=== PATIENT | male | born 1960 | race Caucasian/White ===

== ENCOUNTER 2017-02-13 11:19 | Emergency (ER) | payer MEDICAID ==
[~2017-02-13] VITALS: Ht 157.5 cm; Wt 67.0 kg
[2017-02-13 11:22] VITALS: Ht 157.5 cm; Wt 67.0 kg
--- NOTE | 2017-02-13 12:06 | ERD ---
ER Documentation Chief Complaint Date/Time DATE: 02/13/17 TIME: 11:59 Chief Complaint suture removal on rt chest wall HPI Patient is a 56-year-old male with a history of renal disease who presents to the ED for suture removal from his right upper chest wall. Patient states 10 days ago he had a dialysis catheter placed into his right upper chest at [facility]. Patient states that he was advised to follow-up with the dialysis center for suture removal. Patient states today when he went to the dialysis center they stated that they did not have supplies to remove the suture. Patient presents here in the ED for suture removal. Patient denies any fevers, chills, nausea, vomiting, pain, redness, swelling, active bleeding or discharge from the affected site. Patient states that he did receive antibiotics while inpatient. Patient denies taking any antibiotics on outpatient basis. Patient is scheduled to have dialysis tomorrow. ROS All systems reviewed and are negative except as per history of present illness. PMhx/Soc Medical and Surgical Hx: pt denies Surgical Hx History of Surgery: Yes (dialysis) Hx Miscellaneous Medical Probl: No (kidney disease) Hx Alcohol Use: No Hx Substance Use: No Hx Tobacco Use: No FmHx Family History: No diabetes Physical Exam Vitals Vital Signs Date Time Temp Pulse Resp B/P Pulse Ox O2 Delivery O2 Flow Rate FiO2 02/13/17 11:22 98.3 78 18 151/85 98 Physical Exam GENERAL: Well-developed, well-nourished male. Appears in no acute distress. Speaking in full sentences. HEAD: Normocephalic, atraumatic. EYES: Pupils are equally reactive bilaterally. EOMs grossly intact. No conjunctival erythema. ENT: Moist mucous membranes. No uvula deviation. No kissing tonsils. NECK: Supple. No meningismus. Normal range of motion of the neck. LUNG: Clear to auscultation bilaterally. No rhonchi, wheezing, rales or coarse breath sounds. CHEST WALL: Dialysis catheter noted in the right upper chest wall. Surrounding skin is nonerythematous, no swelling, no active bleeding or discharge. One single suture noted below the patient's right clavicle. No surrounding erythema , swelling, warmth or bleeding. HEART: Regular rate and rhythm. No murmurs, rubs or gallops. EXTREMITIES: Equal pulses bilaterally. No peripheral clubbing, cyanosis or edema. No unilateral leg swelling. NEUROLOGIC: Alert and oriented. Moving all four extremities without any difficulty. Normal speech. Steady gait. SKIN: Normal color. Warm and dry. No rashes or lesions. Procedures/MDM MEDICAL DECISION MAKING: This is a 56-year-old male who presents to the ED for suture removal after having a dialysis catheter placed in his right upper chest wall [address] [facility]. Patient was advised to have the dialysis center remove the suture, however upon going to the dialysis center today they stated that they were unable to remove it secondary to not having supplies. Patient presents to the ED for suture removal. Patient denies any fevers or chills. Patient denies any erythema, warmth, swelling there are active bleeding or discharge from the affected site. Vital signs were reviewed. Patient is afebrile. The wound appears to be healing well with no concerns of acute infection at this time. Single suture from the patient's right upper chest wall was removed without any difficulty. Wound was re-dressed by assessment technician using sterile gauze. At this time, the patient's presentation is consistent with suture removal. Low suspicion for wound dehiscence, cellulitis, deep space infection, neurovascular injury. Patient was advised to go to dialysis as scheduled. DISCHARGE: At this time, the patient is stable for discharge and outpatient management. Post-procedural wound care was discussed with the patient. I have instructed the patient to promptly return to the ER for any new or worsening symptoms including increasing pain, fever, warmth, redness or swelling. The patient and/ or family expressed understanding of and agreement with this plan. All questions were answered. Home care instructions were provided. Patients blood pressure was elevated (>120/80) but appears stable without evidence of hypertensive emergency, hypertensive urgency or end-organ failure. I had discussion with the patient about the risks of hypertension. I have advised the patient to follow up with his/her primary care physician for outpatient monitoring and treatment for hypertension in 2-3 days. I have instructed the patient to return to the ER for any new or worsening symptoms including chest pain, shortness of breath, headache, blurred vision, confusion, nausea, vomiting or LOC. Departure Diagnosis: Primary Impression: Encounter for removal of sutures Condition: Stable Patient Instructions: Suture Removal, No Complication Referrals: [facility] YOU HAVE RECEIVED A MEDICAL SCREENING EXAM AND THE RESULTS INDICATE THAT YOU DO NOT HAVE A CONDITION THAT REQUIRES URGENT TREATMENT IN THE EMERGENCY DEPARTMENT. FURTHER EVALUATION AND TREATMENT OF YOUR CONDITION CAN WAIT UNTIL YOU ARE SEEN IN YOUR DOCTORS OFFICE WITHIN THE NEXT 1-2 DAYS. IT IS YOUR RESPONSIBILITY TO MAKE AN APPOINTMENT FOR FOLOW-UP CARE. IF YOU HAVE A PRIMARY DOCTOR --you should call your primary doctor and schedule an appointment IF YOU DO NOT HAVE A PRIMARY DOCTOR YOU CAN CALL OUR PHYSICIAN REFERRAL HOTLINE AT IF YOU CAN NOT AFFORD TO SEE A PHYSICIAN YOU CAN CHOSE FROM THE FOLLOWING [facility] [address] [facility]. [facility] [address] [facility] [address] [facility] [address] [facility] [facility] [address] [facility]. [facility] [address] [facility]. [facility] YOU HAVE RECEIVED A MEDICAL SCREENING EXAM AND THE RESULTS INDICATE THAT YOU DO NOT HAVE A CONDITION THAT REQUIRES URGENT TREATMENT IN THE EMERGENCY DEPARTMENT. FURTHER EVALUATION AND TREATMENT OF YOUR CONDITION CAN WAIT UNTIL YOU ARE SEEN IN YOUR DOCTORS OFFICE WITHIN THE NEXT 1-2 DAYS. IT IS YOUR RESPONSIBILITY TO MAKE AN APPOINTMENT FOR FOLOW-UP CARE. IF YOU HAVE A PRIMARY DOCTOR --you should call your primary doctor and schedule and appointment IF YOU DO NOT HAVE A PRIMARY DOCTOR YOU CAN CALL OUR PHYSICIAN REFERRAL HOTLINE AT . IF YOU CAN NOT AFFORD TO SEE A PHYSICIAN YOU CAN CHOSE FROM THE FOLLOWING [facility]: [facility] [address] [place] [address] [facility] [address] [place] [address] [facility] + [facility] [address] [place] [address] [facility] Additional Instructions: Call your primary care doctor TOMORROW for an appointment during the next 1-2 days.See the doctor sooner or return here if your condition worsens before your appointment time. Go to dialysis as scheduled. JOSE RAUL BARKLEY PA-C Feb 13, 2017 12:06
== END 2017-02-13 12:15 | disposition home or self-care (01) ==
LOC: FTE 11:19
DX: Z48.02 Encounter for removal of sutures (principal)
CPT/HCPCS: 99281